=== PATIENT | female | born 1975 | race Caucasian/White ===

== ENCOUNTER 2017-01-11 18:43 | Emergency (ER) | payer MEDICAID ==
[2017-01-11 19:14] VITALS: BP 165/93
--- NOTE | 2017-01-11 19:35 | EDM.PDOC ---
ED HPI GENERAL MEDICAL PROBLEM - General Chief Complaint: Eye Problems Stated Complaint: PINK EYE Time Seen by Provider: 01/11/17 19:15 Source of Information: Reports: Patient History Limitations: Reports: No Limitations - History of Present Illness INITIAL COMMENTS - FREE TEXT/NARRATIVE: 41 YO WF presents to ER with 3 hour history of left eye irritation. Pt reports she had some eyelid soreness earlier in the day and took a nap this afternoon and woke with what she described as "bloodshot" eye. Pt denies any discharge. Pt reports her symptoms are currently gone but she wanted to make sure she didn' t have pink eye or was contagious. Onset: Today Duration: Hour(s): (4) Quality: Reports: Burning Severity: Mild Improves with: Reports: None Worsens with: Reports: None Associated Symptoms: Reports: No Other Symptoms Left Eye Pain Score (Numeric/FACES): 3 - Related Data Allergies Allergy/AdvReac Type Severity Reaction Status Date / Time tioconazole Allergy Other Verified 01/11/17 18:58 [From Monistat 1 (tioconazole)] cefprozil [From Cefzil] AdvReac Diarrhea Verified 01/11/17 18:58 clarithromycin [From Biaxin] AdvReac Diarrhea Verified 01/11/17 18:58 rofecoxib [From Vioxx] AdvReac Diarrhea Verified 01/11/17 18:58 Home Meds: Home Meds Baclofen [Baclofen] 20 mg PO TID PRN 01/11/17 [History] Cholecalciferol (Vitamin D3) [Vitamin D] 5,000 unit PO BEDTIME 01/11/17 [History ] Cyanocobalamin (Vitamin B-12) [Vitamin B-12] 1,000 mcg PO BEDTIME 01/11/17 [ History] Loratadine [Claritin] 10 mg PO BEDTIME 01/11/17 [History] Pantoprazole Sodium 80 mg PO DAILY 01/11/17 [History] Pregabalin [Lyrica] 150 mg PO BID 01/11/17 [History] Simvastatin [Simvastatin] 20 mg PO BEDTIME 01/11/17 [History] Venlafaxine HCl [Venlafaxine ER] 150 mg PO BEDTIME 01/11/17 [History] ZOLMitriptan [Zomig] 1 spray INH DAILY PRN 01/11/17 [History] Zaleplon [Sonata] 10 mg PO BEDTIME PRN 01/11/17 [History] Social & Family History - Tobacco Use Smoking Status *Q: Current Every Day Smoker Years of Tobacco use: 25 Packs/Tins Daily: 0.5 Month Tobacco Last Used: - Caffeine Use Caffeine Use: Reports: Soda - Recreational Drug Use Recreational Drug Use: No ED ROS GENERAL - Review of Systems Review Of Systems: See Below Constitutional: Reports: No Symptoms HEENT: Reports: Eye Pain. Denies: Contact Lenses, Eye Discharge Respiratory: Reports: No Symptoms Cardiovascular: Reports: No Symptoms Endocrine: Reports: No Symptoms GI/Abdominal: Reports: No Symptoms : Reports: No Symptoms Musculoskeletal: Reports: No Symptoms Skin: Reports: No Symptoms Neurological: Reports: No Symptoms Psychiatric: Reports: No Symptoms Hematologic/Lymphatic: Reports: No Symptoms Immunologic: Reports: No Symptoms ED EXAM GENERAL W FULL EYE - Physical Exam Exam: See Below Exam Limited By: No Limitations General Appearance: Alert, WD/WN, No Apparent Distress Eye Exam: Bilateral Eye: EOMI, PERRL With Correction: Yes Eyelids: Bilateral: Normal Appearance Conjunctiva & Sclera: Bilateral: Normal Appearance Cornea Exam: Bilateral: Normal Appearance Extraocular Movements: Bilateral: Intact Pupils: Normal Accommodation Anterior Chamber: Bilateral: Normal Appearance Posterior Chamber: Bilateral: Normal Funduscopic Ears: Normal External Exam, Normal Canal, Hearing Grossly Normal, Normal TMs Nose: Normal Inspection, Normal Mucosa, No Blood Throat/Mouth: Normal Inspection, Normal Lips, Normal Teeth, Normal Gums, Normal Oropharynx, Normal Voice, No Airway Compromise Head: Atraumatic, Normocephalic Neck: Normal Inspection, Supple, Non-Tender, Full Range of Motion Respiratory/Chest: No Respiratory Distress, Lungs Clear, Normal Breath Sounds, No Accessory Muscle Use, Chest Non-Tender Cardiovascular: Normal Peripheral Pulses, Regular Rate, Rhythm, No Edema, No Gallop, No JVD, No Murmur, No Rub GI/Abdominal: Normal Bowel Sounds, Soft, Non-Tender, No Organomegaly, No Distention, No Abnormal Bruit, No Mass Back Exam: Normal Inspection, Full Range of Motion, NT Extremities: Normal Inspection, Normal Range of Motion, Non-Tender, Normal Capillary Refill, No Pedal Edema Neurological: Alert, Oriented, CN II-XII Intact, Normal Cognition, Normal Gait, Normal Reflexes, No Motor/Sensory Deficits Psychiatric: Normal Affect, Normal Mood Skin Exam: Warm, Dry, Intact, Normal Color, No Rash Lymphatic: No Adenopathy Course - Vital Signs Last Recorded V/S: Last Vital Signs Temp 35.8 C 01/11/17 19:12 Pulse 91 01/11/17 19:12 Resp 20 01/11/17 19:12 BP 165/93 H 01/11/17 19:12 Pulse Ox 97 01/11/17 19:12 Departure - Departure Time of Disposition: 19:35 Disposition: Home, Self-Care 01 Condition: Good Clinical Impression: Conjunctivitis Qualifiers: Chronic conjunctivitis type: viral Laterality: left - Discharge Information Instructions: Viral Conjunctivitis Referrals: [facility] [Other] Forms: ED Department Discharge - Assessment/Plan Assessment:: 1. viral conjunctivitis Plan: 1. discharge home 2. supportive care 3. instructed to return in 2 days if symptoms worsen
== END 2017-01-11 19:44 | disposition home or self-care (01) ==
LOC: KA.ED 18:43
DX: B30.9 Viral conjunctivitis, unspecified (principal); Z88.8 Allergy status to other drugs, medicaments and biological substances; Z88.1 Allergy status to other antibiotic agents; Z79.899 Other long term (current) drug therapy
CPT/HCPCS: 99282